=== PATIENT | male | born 1970 | race Native Hawaiian/Other Pacific Islander ===

== ENCOUNTER 2017-11-04 19:02 | Emergency (ER) | payer OTHER, SELFPAY ==
[2017-11-04 19:07] VITALS: BP 120/82; PULSE 94; RESP 16; TEMP 36.2; O2SAT 97; BMI 27.1
--- NOTE | 2017-11-04 19:31 | DI.RAD.S_ITS ---
PROCEDURE: XR ACUTE ABDOMEN SERIES INDICATIONS: constipation / low abd pain r/o obstruction TECHNIQUE: One view chest and two views of the abdomen were acquired. COMPARISON: None. FINDINGS: Surgical changes and devices: None. Chest: Lungs are clear. Heart size is normal. No pleural effusions. No pneumoperitoneum. Abdomen: Air fluid levels throughout the small bowel on upright images consistent with an intramammary or obstructive ileus. No free intraperitoneal gas. There is stool projecting throughout the colon. Bones: No suspicious bony lesions. IMPRESSION: 1. Small bowel air-fluid levels concerning for an adynamic or obstructive ileus. No free intraperineal gas. 2. Moderate stool in the distal colon and rectum. Dictated by: Solo Sanchez M.D. on 11/04/2017 at 20:07 Approved by: Solo Sanchez M.D. on 11/04/2017 at 20:09
[2017-11-04 20:53] LABS: Add Manual Diff / Slide Review NO; Basophils Percent Auto 0.4 % (0-2); Eosinophils Percent Auto 0.2 % (2-4); Hemoglobin 15.2 g/dL (13.5-17.5); Lymphocytes Percent Auto 6.8 % (25-40); Mean Corpuscular HGB Conc 33.8 % (30-36); Mean Corpuscular Hemoglobin 29.9 PG (26-34); Mean Corpuscular Volume 88.7 fL (80-100); Monocytes Percent Auto 4.4 % (3-14); Neutrophils Absolute Auto 13100 /uL (3000-5900); Neutrophils Percent Auto 88.2 % (50-75); Platelet Count 241 X10^3/uL (150-400); Red Blood Cell Count 5.07 X10^6/uL (4.5-5.9); Red Cell Distribution Width 13.8 % (11.6-14.8); White Blood Cell Count 14.9 X10^3/uL (4.5-11.0)
[2017-11-04] MEDS: SODIUM CHLORIDE 0.9% 1,000 ML 1000 ML IV (20:54)
[2017-11-04] MEDS: ONDANSETRON 4 MG/2 ML INJ IV (20:54)
[2017-11-04 20:57] VITALS: BP 120/70; PULSE 78; RESP 12; O2SAT 99
[2017-11-04 21:03] LABS: Prothrombin Time 11.2 SECONDS (10.1-12.7)
[2017-11-04 21:06] LABS: PTT Partial Thromboplastin Tim 32 SECONDS (26.4-36.2)
[2017-11-04 21:08] LABS: Alanine Aminotransferase 31 IU/L (21-72); Albumin 4.3 g/dL (3.5-5.0); Albumin Globulin Ratio 1.4 (1.0-2.8); Alkaline Phosphatase 51 U/L (38-126); Aspartate Aminotransferase 33 IU/L (17-59); BUN Creatinine Ratio 27.8 (6-22); Bilirubin Total 0.8 mg/dL (0.2-1.3); Blood Urea Nitrogen 25 mg/dL (9-20); Calcium 8.8 mg/dL (8.4-10.2); Carbon Dioxide 22 mmol/L (22-32); Chloride 99 mmol/L (98-107); Estimated Glomerular Filt Rate > 60.0 mL/min (>60); Glucose 92 mg/dL (70-100); HEMOLYSIS 21 (0-50); Lipase 78 U/L (23-300); Potassium 3.9 mmol/L (3.4-5.1); Sodium 134 mmol/L (137-145); Total Protein 7.3 g/dL (6.3-8.2)
--- NOTE | 2017-11-04 21:39 | ED_ITS ---
HPI - Abdominal Pain General Chief Complaint: Abdominal Pain Stated Complaint: LOWER ABDOMINAL PAIN Time Seen by Provider: 11/04/17 21:39 Source: patient Mode of arrival: ambulatory Limitations: no limitations History of Present Illness HPI narrative: The patient describes abdominal discomfort that started yesterday. He has eaten today. He denies nausea or vomiting. He feels like he needs to have a bowel movement and has pressure. He has not been able to have a bowel movement today. He denies fever or chills. He has no chronic GI issues. He has never had abdominal surgery. He has no urinary retention or dysuria. He has no tenderness. He denies fever or chills. He has no associated back pain. He does not smoke or use alcohol on a significant basis. Related Data Home Medications Medication Instructions Recorded Confirmed atorvastatin 40 mg PO HS #0 tab 02/24/13 11/04/17 lisinopril 40 mg PO QDAY #0 tab 02/24/13 11/04/17 Allergies Allergy/AdvReac Type Severity Reaction Status Date / Time No Known Drug Allergies Allergy Verified 11/04/17 19:07 Review of Systems Review of Systems All systems reviewed & are unremarkable except as noted in HPI and below Constitutional Denies chills, Denies fever(s), Denies lethargy and Denies weakness Eyes Denies change in vision, Denies eye discharge and Denies irritation Cardiovascular Denies chest pain, Denies irregular heart rhythm, Denies lightheadedness, Denies palpitations, Denies dyspnea, Denies dyspnea on exertion and Denies orthopnea Respiratory Denies cough, Denies dyspnea, Denies dyspnea on exertion and Denies wheezing Gastrointestinal Gastrointestinal: Reports as per HPI Genitourinary Denies hematuria, Denies flank pain, Denies urinary incontinence and Denies urinary urgency Musculoskeletal Denies back pain, Denies myalgias and Denies numbness Integumentary/Breasts Denies rash, Denies skin ulcer and Denies sores Neurologic Denies numbness and Denies weakness Endocrine Denies palpitations Allergic/Immunologic Denies wheezing FOR[facility]LY [facility], [facility] Medical History High cholesterol (Acute) Hypertension (Acute) Social History Smoking Status: Never smoker Exam Initial Vital Signs Initial Vital Signs: Vital Signs Temperature 97.2 F L 11/04/17 19:07 Pulse Rate 94 H 11/04/17 19:07 Respiratory Rate 16 11/04/17 19:07 Blood Pressure 120/82 H 11/04/17 19:07 Pulse Oximetry 97 11/04/17 19:07 Const General: cooperative and well developed Nutritional Appearance: well nourished Orientation: alert, awake, oriented x3 and not confused HENMT Head: normocephalic and atraumatic Ears: external ears normal and TM's normal bilaterally Nose: external nose normal and No nasal discharge Face and sinus: sinuses nontender, face symmetric, no sinus tenderness and No dry mucous membranes Mouth: oral mucosae normal and moist mucous membranes Teeth and gingiva: dentition normal Throat: tonsils normal and uvula midline Eyes General: appearance normal, both eyes and all related structures Eyelids: eyelids normal Conjunctivae: conjunctivae normal Sclera: sclerae normal Pupils: PERRL EOM: EOM intact bilaterally Resp Effort & Inspection: normal respiratory effort, able to speak in complete sentences, no respiratory distress and no use of accessory muscles Auscultation: clear to auscultation bilaterally, no rales, no rhonchi and no wheezes Cardio Rate: regular rate Rhythm: regular rhythm Heart Sounds: no click, no gallops, no murmurs and no rubs Pulses: normal peripheral pulses GI Inspection: non-distended Palpation: soft, no hepatosplenomegaly, No guarding, No pulsatile mass and No tender Auscultation: normal bowel sounds Rectal Exam: visual inspection normal, normal sphincter tone, prostate normal, heme negative stool, No lesions, No mass and other (He has a moderate amount of very firm stool in the rectum.) Back/Spine/Pelvis Thoracic/Lumbar Spine: thoraco-lumbar ROM normal Skin General: no rashes or lesions noted Neuro General: awake and oriented x3 Motor: muscle tone normal throughout Course Hospital Course: The patient received 2 fleets enemas. He has had limited results, but has had a bowel movement. His discomfort has resolved, he does feel better. Orders Ordered: ED Orders 11/04/17 19:31 XR acute abdomen series Stat 11/04/17 20:49 Complete Blood Count AUTO DIFF Stat Comprehensive Metabolic Panel Stat Lipase Stat Partial Thromboplastin Time Stat Prothrombin Time INR Stat Discontinued Medications Sodium Chloride (Normal Saline 0.9%) 1,000 mls @ 1,000 mls/hr IV BOLUS ONE Stop: 11/04/17 21:52 Last Infusion: 11/04/17 22:41 Dose: 0 mls/hr Admin: 11/04/17 20:54 Dose: 1,000 mls/hr Ondansetron HCl (Zofran) 4 mg IV NOW ONE Stop: 11/04/17 20:54 Last Admin: 11/04/17 20:54 Dose: 4 mg Vital Signs - 8 hr 11/04/17 19:07 11/04/17 20:57 Temperature 97.2 F L Pulse Rate 94 H 78 Respiratory Rate 16 12 Blood Pressure 120/82 H Blood Pressure [Left Arm] 120/70 Pulse Oximetry 97 99 MDM - Abdominal Pain Lab Data Attestation: I reviewed the patient's lab results. Result diagrams: 11/04/17 20:49 11/04/17 20:49 Lab Results 11/04/17 11/04/17 11/04/17 Range/Units 20:49 20:49 20:49 WBC 14.9 H (4.5-11.0) X10^3/uL RBC 5.07 (4.5-5.9) X10^6/uL Hgb 15.2 (13.5-17.5) g/dL Hct 45.0 (41-53) % MCV 88.7 (80-100) fL MCH 29.9 (26-34) PG MCHC 33.8 (30-36) % RDW 13.8 (11.6-14.8) % Plt Count 241 (150-400) X10^3/uL Neut % (Auto) 88.2 H (50-75) % Lymph % (Auto) 6.8 L (25-40) % [place] % (Auto) 4.4 (3-14) % Eos % (Auto) 0.2 L (2-4) % Baso % (Auto) 0.4 (0-2) % Neut # (Auto) 81782 H (6522-5954) /uL PT 11.2 (10.1-12.7) SECONDS INR 1.0 (0.9-1.3) APTT 32 (26.4-36.2) SECONDS Sodium 134 L (137-145) mmol/L Potassium 3.9 (3.4-5.1) mmol/L Chloride 99 (98-107) mmol/L Carbon Dioxide 22 (22-32) mmol/L BUN 25 H (9-20) mg/dL Creatinine 0.90 (0.66-1.25) mg/dL Estimated GFR > 60.0 (>60) mL/min BUN/Creatinine Ratio 27.8 H (6-22) Glucose 92 (70-100) mg/dL Calcium 8.8 (8.4-10.2) mg/dL Total Bilirubin 0.8 (0.2-1.3) mg/dL AST 33 (17-59) IU/L ALT 31 (21-72) IU/L Alkaline Phosphatase 51 (38-126) U/L Total Protein 7.3 (6.3-8.2) g/dL Albumin 4.3 (3.5-5.0) g/dL Globulin 3.0 (1.7-4.1) g/dL Albumin/Globulin Ratio 1.4 (1.0-2.8) Lipase 78 (23-300) U/L Discharge Plan Departure Patient Disposition: Home, Self-Care Clinical Impression: Constipation Instructions: Constipation Activity Restrictions/Additional Instructions: Drink plenty of water as we discussed. Milk of magnesia, 2 tbsp every 4 hr until you are having regular bowel movements. Return to the ER as needed. Prescriptions: No Action lisinopril 40 MG tablet 40 mg PO QDAY Qty: 0 RF: 0 atorvastatin 40 MG tablet 40 mg PO HS Qty: 0 RF: 0
[2017-11-05 00:03] VITALS: BP 127/83; PULSE 67; RESP 18; O2SAT 97
== END 2017-11-05 00:04 | disposition home or self-care (01) ==
PROVIDERS: Emergency Provider Emergency Medicine
DX: K59.00 Constipation, unspecified (principal)
CPT/HCPCS: 36591; 74022; 80053; 83690; 85025; 85610; 85730; 96361; 96374; 99283; 99284; J2405

== ENCOUNTER 2019-03-21 17:00 | Emergency (ER) | payer OTHER, SELFPAY ==
[2019-03-21 17:09] VITALS: BP 133/87; PULSE 67; RESP 18; TEMP 36.3; O2SAT 95; BMI 28.5
[2019-03-21] MEDS: MINERAL OIL 1 EACH ENEMA PR (18:44)
--- NOTE | 2019-03-21 18:58 | ED.ABDPAIN ---
HPI - Abdominal Pain <HARRY Sapp - Last Filed: 03/21/19 23:53> General Chief Complaint: Abdominal Pain Stated Complaint: Severe Constipation Time Seen by Provider: 03/21/19 17:14 Source: patient Mode of arrival: Ambulatory Limitations: no limitations History of Present Illness HPI narrative: This is a 48-year-old gentleman, nonsmoker, who presents to ED with chief complain of constipation and rectal pressure. Patient reports set on a toilet bowl for about 3 hours in attempt to have good bowel movements but was unsuccessful. Patient has been using stool softener and had exercised to help with bowel movements. Patient denies fever, chills, nausea or vomiting, appetite change, or severe abdominal discomfort. Patient had similar constipation about 2 years ago and had a disimpaction done in ED. Patient denies any recent diet, activity, or medication changes. Patient has daily bowel movements usually. Related Data Home Medications Medication Instructions Recorded Confirmed lisinopril 10 mg PO QPM 03/21/19 03/21/19 Allergies Allergy/AdvReac Type Severity Reaction Status Date / Time No Known Drug Allergies Allergy Verified 03/21/19 17:11 Review of Systems <HARRY Sapp - Last Filed: 03/21/19 23:53> Review of Systems Narrative: General: Denies fever, chills, fatigue, malaise, sweats. HEENT: Denies sinus pain, ear pain, sore throat, difficulty swallowing, dizziness. Respiratory: Denies dyspnea, cough, wheezing, hemoptysis, sputum. Cardiovascular: Denies chest pain, palpitations, orthopnea, edema. Gastrointestinal: See HPI : Denies dysuria, frequency, incontinence, hematuria, urinary retention. Musculoskeletal: Denies weakness, joint pain or bony pain. Skin: Denies rash, skin lesions, or other. Neurologic: Denies weakness, headache, numbness, change in speech, confusion, seizures, incoordination. Psychiatric: No concerning psychosocial issues. 12-point review of systems is negative except for those stated above. Patient History <HARRY Sapp - Last Filed: 03/21/19 23:53> Medical History High cholesterol (Acute) Hypertension (Acute) Social History Smoking Status: Never smoker Substance Use Type: does not use Exam <HARRY Sapp - Last Filed: 03/21/19 23:53> Narrative Exam Narrative: General appearance: well developed, well nourished, in no acute distress. Head: normocephalic, atraumatic, no scalp lesions, non-tender. Eye: pupil equal, round. EOMI. Nose: nares patent. Oral: mucosa moist. Neck/Thyroid: neck supple, full range of motion, no visible masses. Skin: no suspicious rashes, lesions over visible areas. Warm and dry. Heart: no clubbing, no cyanosis, no edema. Lungs: Breathing even and unlabored. No stridor. No accessory muscles used. Chest: normal shape and expansion. Abdomen: non-obese, non-distended. No rebound tenderness, abdomen soft with bowel sounds in 4 quadrant, not tender to palpate. Neurologic: alert and oriented. Cognitive exam, [employer] TRA[employer] and PNS grossly intact on informal exam. Psych: good eye contact, normal affect. Initial Vital Signs Initial Vital Signs: Vital Signs Temperature 97.3 F L 03/21/19 17:09 Pulse Rate 67 03/21/19 17:09 Respiratory Rate 18 03/21/19 17:09 Blood Pressure 133/87 03/21/19 17:09 Pulse Oximetry 95 03/21/19 17:09 <Jewell Villegas MD - Last Filed: 03/22/19 00:19> Initial Vital Signs Initial Vital Signs: Vital Signs Temperature 97.3 F L 03/21/19 17:09 Pulse Rate 67 03/21/19 17:09 Respiratory Rate 18 03/21/19 17:09 Blood Pressure 133/87 03/21/19 17:09 Pulse Oximetry 95 03/21/19 17:09 Procedures <HARRY Sapp - Last Filed: 03/21/19 23:53> Rectal Disimpaction Time out performed rectal disimpaction: Yes Indication: fecal impaction Procedural Sedation: No Sedation/Analgesia: none Technique: manual disimpaction with gloved finger Result: unable to disimpact (unable to feel stools in rectal vault) Patient Tolerated Procedure: Well Complications: none Additional Comments: Mineral oil enema provided with good result Scores <Cy FergusonHARRY Sommers - Last Filed: 03/21/19 23:53> GCS Ellie coma scale eye opening: Spontaneous Ellie coma scale verbal response: Orientated Ellie coma scale motor response: Obey commands Ellie coma scale total score: 15 Course <Cy FergusonHARRY Sommers - Last Filed: 03/21/19 23:53> Orders Ordered: Discontinued Medications Magnesium Citrate (Magnesium Citrate) 300 ml PO NOW ONE Stop: 03/21/19 19:25 Last Admin: 03/21/19 19:58 Dose: 300 ml Documented by: FACUNDO Mineral Oil (Mineral Oil Enema) 1 each [place] NOW ONE Stop: 03/21/19 18:44 Last Admin: 03/21/19 18:44 Dose: 1 each Documented by: DELANEY Vital Signs Vital signs: Vital Signs - 8 hr 03/21/19 17:09 Temperature 97.3 F L Pulse Rate 67 Respiratory Rate 18 Blood Pressure 133/87 Pulse Oximetry 95 <Jewell Villegas MD - Last Filed: 03/22/19 00:19> Orders Ordered: Discontinued Medications Magnesium Citrate (Magnesium Citrate) 300 ml PO NOW ONE Stop: 03/21/19 19:25 Last Admin: 03/21/19 19:58 Dose: 300 ml Documented by: FACUNDO Mineral Oil (Mineral Oil Enema) 1 each [place] NOW ONE Stop: 03/21/19 18:44 Last Admin: 03/21/19 18:44 Dose: 1 each Documented by: DELANEY Vital Signs Vital signs: Vital Signs - 8 hr 03/21/19 17:09 Temperature 97.3 F L Pulse Rate 67 Respiratory Rate 18 Blood Pressure 133/87 Pulse Oximetry 95 [facility] - Abdominal Pain <[facility] FergusonHARRY Sommers - Last Filed: 03/21/19 23:53> Differential Diagnosis Differential diagnosis: Likely constipation Medical Records Attestation: I reviewed the patient's medical records. [facility] Narrative Medical decision making narrative: This is 48-year-old pleasant gentleman who presents to with the constipation symptoms and rectal pressure for 2 days without constitutional symptoms, significant abdominal pain, or decreased appetite. Patient had tried stool softener and exercise prior coming into ED without success. Patient reports had similar symptoms couple of years ago and had this impacted stool in ED. Attempted this infection but there was no stool palpated in rectal vault. Patient had large bowel movement after mineral oil enema in ED and reports improved symptoms. We discussed [id number] bowel movement regimen interventions in details to prevent constipation or interventions for constipation and patient verbalized understanding and agrees with the treatment plan. Return precautions were discussed with the patient. Discharge Plan Departure Patient Disposition: Home Clinical Impression: Constipation Qualifiers: Constipation type: unspecified constipation type Qualified Code(s): K59.00 - Constipation, unspecified Discharge Date/Time: 03/21/19 20:24 Instructions: DI for Constipation Activity Restrictions/Additional Instructions: You have been diagnosed with [constipation. You're ever to have a good bowel movement in the ED after mineral oil enema.]. What to do: *Take your medications as directed. You can take rest of the magnesium citrate at home tonight for another good bowel movement for tomorrow morning. *Follow up with your primary care provider in 2-3 days, call for an appointment. Let them know you were seen in the ED and that we asked you to be seen in follow up. *Return to ED if you have any new, worsening, or concerning symptoms, such as [fever, abdominal pain, unable to tolerate fluids, chest pain, breathing difficulty, or any acute concerns]. Prescriptions: No Action lisinopril 10 mg tablet 10 mg PO QPM RF: 0 Referrals: Hillary Oliver [Provider Group]
--- NOTE | 2019-03-21 19:09 | PC.NURSE ---
Patient laying on left side holding enema
[2019-03-21] MEDS: MAGNESIUM CITRATE 300 ML SOLUTION PO (19:58)
== END 2019-03-21 20:24 | disposition home or self-care (01) ==
PROVIDERS: Emergency Provider Nurse Practitioner Family
DX: K59.00 Constipation, unspecified (principal); R10.9 Unspecified abdominal pain
CPT/HCPCS: 99283